=== PATIENT | female | born 1970 | race American Indian/Alaskan Native ===

== ENCOUNTER 2016-08-25 09:31 | Outpatient (CLI) | payer BC ==
--- NOTE | 2016-08-25 12:24 | Ultrasound Report ---
Ultrasound-guided left breast aspiration: History: Fluid appearing structures in the left breast on outside exam. Images of the lateral breast demonstrates an elongated hypodense collection in the lateral breast at approximately 3:00. It has a length of 4.6 cm but is relatively narrow measuring about 6 mm. It changes shape with compression. An apparent second collection is also identified more medially. The skin was cleansed and 1% lidocaine used for local anesthesia. A 22-gauge needle was introduced percutaneously under ultrasound guidance. Several sticks were acquired to aspirate the fluid which was initially somewhat cloudy and thick. After multiple sticks it became heme tinged. The second collection was approached in a similar manner with adequate aspiration of cloudy material. The aspirate was discarded. A rescan showed no significant collections although there are couple small scattered cysts. There is no patient or technical complications other than described above. The patient was discharged.
== END 2016-08-25 09:32 | disposition home or self-care (01) ==
LOC: US 09:31
PROVIDERS: ATTEND Surgery
DX: N60.02 Solitary cyst of left breast (principal)

== ENCOUNTER 2019-04-12 13:03 | Outpatient (CLI) | payer BC ==
--- NOTE | 2019-04-14 16:13 | Ultrasound Report ---
RIGHT BREAST ULTRASOUND HISTORY: A persistent lower inner mammographic asymmetry. COMPARISON: 04/03/2019 FINDINGS: Ultrasound of all 4 quadrants and the retroareolar area was performed. Ultrasound demonstra eleanor numerous benign cysts.A cyst at 4:00 measures 9 x 5 x 8 mm and correlates with the mammographic d ensity. No solid mass or shadowing. IMPRESSION: Benign cysts. If the clinical examination remains stable, recommend bilateral annual screening mammographic evaluat ion. BIRADS 2: Benign Signer Name: Arnulfo Rice MD Signed: 04/12/2019 3:28 PM Workstation Name: [id number]
== END 2019-04-12 13:04 | disposition home or self-care (01) ==
LOC: SPVWC 13:03
PROVIDERS: ATTEND Surgery
DX: N60.01 Solitary cyst of right breast (principal); I10 Essential (primary) hypertension; Z90.710 Acquired absence of both cervix and uterus

== ENCOUNTER 2020-05-07 10:36 | Outpatient (CLI) | payer BC ==
--- NOTE | 2020-05-07 11:48 | Ultrasound Report ---
EXAMINATION: Left Limited Breast Ultrasound, 05/07/2020 INDICATION: Nodular density in the left breast on screening mammography. COMPARISON: Bilateral mammography 04/08/20. FINDINGS: Targeted ultrasound evaluation was performed of the area of interest. There are 2 adjacent ovoid, located cysts at the 8:00 position 4 cm from the nipple at the site of the mammographically d etected nodule. The larger lesion measures 1 cm and the smaller lesion measures 4.7 mm. No suspicious abnormality is seen.. IMPRESSION: 2 adjacent benign-appearing complicated cysts in the left breast correspond to the mammog raphic abnormality. Routine bilateral yearly screening mammography should be adequate for follow-up. Follow up recommendation: Routine yearly BI-RADS Category 2: Benign. Signer Name: Deshawn Luu MD Signed: 05/07/2020 11:44 AM Workstation Name: [id number]
== END 2020-05-07 10:37 | disposition home or self-care (01) ==
LOC: SPVWC 10:36
PROVIDERS: ATTEND Surgery
DX: R92.8 Other abnormal and inconclusive findings on diagnostic imaging of breast (principal)